=== PATIENT | female | born 1990 | race American Indian/Alaskan Native ===

== ENCOUNTER 2017-04-02 03:14 | Emergency (ER) | payer SELFPAY ==
[2017-04-02] MEDS ORDERED: TORADOL IM ONE (06:09)
--- NOTE | 2017-04-02 06:15 | Emergency Department Report ---
ED Back Pain/Injury HPI - General Chief Complaint: Abdominal Pain Stated Complaint: RT FLANK PAIN Time Seen by Provider: 04/02/17 06:04 Source: patient Limitations: No Limitations - History of Present Illness Initial Comments: Pt presents to ED with c/o pain right flank, posteriorly x 5 days. Pt recalls having cough productive of scanty whitish sputum. Pt denies fever, N/V/D. Right flank pain, posteriorly hurts with taking a deep breathe. No dyssuria, no urinary frequency MD Complaint: back pain -: Gradual, days(s) (5) Radiation: none Severity: moderate Severity scale (0 -10): 7 Quality: sharp, dull, stabbing, crushing, aching Consistency: intermittent Improves With: immobilization Worsens With: movement, supine, sitting upright, walking Context: unknown Associated Symptoms: weakness, diaphoresis, fever/chills, headaches, malaise, nausea/vomiting. denies: confusion, chest pain, numbness, difficulty walking, cough, difficulty urinating, incontinence, constipation, abdominal pain, loss of appetite, rash, seizure, shortness of breath, syncope Treatments Prior to Arrival: other (no treatment tried LE[employer]) - Related Data Previous Rx's Medication Instructions Recorded Last Taken Type Diclofenac Potassium [Cambia] 50 mg PO TID #30 powd.pack 04/02/17 Unknown Rx Methocarbamol [Robaxin-750] 1,500 mg PO TID #40 tablet 04/02/17 Unknown Rx Allergies Allergy/AdvReac Type Severity Reaction Status Date / Time No Known Allergies Allergy Unverified 04/02/17 04:02 ED Review of Systems ROS: Stated complaint: RT FLANK PAIN Other details as noted in HPI Comment: All other systems reviewed and negative Constitutional: malaise, weakness. denies: chills, diaphoresis, fever Eyes: denies: eye pain, eye discharge, vision change ENT: denies: as per HPI, ear pain, throat pain, dental pain, hearing loss, epistaxis Respiratory: denies: no symptoms reported, see HPI, cough, shortness of breath, SOB with exertion, SOB at rest Cardiovascular: denies: chest pain, palpitations, dyspnea on exertion, orthopnea , edema, syncope, paroxysmal nocturnal dyspnea, other Endocrine: no symptoms reported Gastrointestinal: denies: abdominal pain, nausea, vomiting, diarrhea, constipation Genitourinary: denies: as per HPI, urgency, dysuria, frequency, hematuria, discharge Musculoskeletal: back pain (right flank, posteriorly). denies: joint swelling, myalgia Skin: denies: rash, lesions, change in color, change in hair/nails, pruritus Neurological: weakness. denies: headache, numbness, paresthesias ED Past Medical Hx - Past Medical History Previous Medical History?: Yes Additional medical history: IBS - Surgical History Past Surgical History?: No - Social History Smoking Status: Never Smoker - Medications Home Medications: Home Medications Medication Instructions Recorded Confirmed Last Taken Type Diclofenac Potassium [Cambia] 50 mg PO TID #30 powd.pack 04/02/17 Unknown Rx Methocarbamol [Robaxin-750] 1,500 mg PO TID #40 tablet 04/02/17 Unknown Rx ED Physical Exam - General Limitations: No Limitations General appearance: alert, in distress (mild to moderate distress) - Head Head exam: Present: atraumatic, normocephalic - Eye Eye exam: Present: normal appearance, PERRL, EOMI. Absent: scleral icterus, conjunctival injection, nystagmus Pupils: Present: normal accommodation - ENT ENT exam: Present: normal exam, normal orophraynx, mucous membranes moist - Neck Neck exam: Present: normal inspection, full ROM. Absent: tenderness, meningismus, lymphadenopathy, thyromegaly - Respiratory Respiratory exam: Present: normal lung sounds bilaterally. Absent: respiratory distress, wheezes, rales, rhonchi, stridor, chest wall tenderness, accessory muscle use, decreased breath sounds - Cardiovascular Cardiovascular Exam: Present: regular rate, normal heart sounds. Absent: normal rhythm, bradycardia, tachycardia, irregular rhythm, systolic murmur, diastolic murmur, rubs - GI/Abdominal GI/Abdominal exam: Present: soft, normal bowel sounds. Absent: distended, tenderness, guarding, rebound, rigid, hyperactive bowel sounds, hypoactive bowel sounds, organomegaly, mass - Rectal Rectal exam: Present: deferred - Extremities Exam Extremities exam: Present: normal inspection, full ROM, normal capillary refill. Absent: pedal edema, joint swelling - Back Exam Back exam: Present: normal inspection, tenderness, muscle spasm (right flank, chest wall, posteriorly). Absent: CVA tenderness (R), CVA tenderness (L), vertebral tenderness - Neurological Exam Neurological exam: Present: alert, oriented X3, CN II-XII intact. Absent: motor sensory deficit, reflexes normal ED Course Vital Signs 04/02/17 03:15 Temperature 97.8 F Pulse Rate 91 H Respiratory 20 Rate Blood Pressure 119/55 O2 Sat by Pulse 100 Oximetry Critical Care Time: No Critical care attestation.: If time is entered above; I have spent that time in minutes in the direct care of this critically ill patient, excluding procedure time. ED Disposition Clinical Impression: Muscle strain of chest wall Disposition: DC-01 TO HOME OR SELFCARE Is pt being admited?: No Does the pt Need Aspirin: No Condition: Stable Instructions: Muscle Strain (ED) Additional Instructions: Cool compresses as tolerated to affected areas. Prescriptions: Diclofenac Potassium [Cambia] 50 mg PO TID #30 powd.pack Methocarbamol [Robaxin-750] 1,500 mg PO TID #40 tablet Referrals: PRIMARY CARE, [Primary Care Provider] - 3-5 Days Time of Disposition: 06:32
[2017-04-02] MEDS ORDERED: FLEXERIL PO ONE (06:28)
[2017-04-02] MEDS ORDERED: ROBAXIN 1,000 MG in NACL 0.9% 250ML 250 ML IV ONE (06:30)
[2017-04-02 06:42] VITALS: BP 120/69
== END 2017-04-02 06:45 | disposition home or self-care (01) ==
LOC: ED 03:14
DX: S29.011A Strain of muscle and tendon of front wall of thorax, initial encounter (principal); X58.XXXA Exposure to other specified factors, initial encounter; Y93.89 Activity, other specified; Y92.89 Other specified places as the place of occurrence of the external cause; Y99.8 Other external cause status
CPT/HCPCS: 96372; 99283; J1885; J2800; J7050